=== PATIENT | female | born 1980 | race African-American/Black ===

== ENCOUNTER 2017-01-02 03:12 | Emergency (ER) | payer OTHER ==
[~2017-01-02] VITALS: Ht 172.7 cm; Wt 64.9 kg
[2017-01-02 03:58] LABS: BASOPHIL COUNT 0.1 K/uL (0-0.1); EOSINOPHIL (%) 0 % (0-5); HEMATOCRIT 36.1 % (36.0-46.0); IMMATURE GRANULOCYTE (%) 0.7 % (0.0-0.7); IMMATURE GRANULOCYTE COUNT 0.1 K/uL; INSTRUMENT ABS NEUTROPHIL CT 14.9 K/uL; MCH 26.4 PG (29.0-34.0); MCHC 32.4 G/DL (30.0-36.0); MCV 81.3 FL (83-99); MEAN PLAT.VOLUME 9.8 uM^3 (9.5-12.4); MONOCYTE COUNT 0.8 K/uL (0-0.8); NEUTROPHIL (%) 88.2 % (45-76); NEUTROPHIL COUNT 14.9 K/uL (1.8-6.4); PLATELET COUNT 331 K/uL (156-360); RBC DIS.WIDTH-CV 17.2 % (11.8-14.6); RBC DIS.WIDTH-SD 50.9 % (39-53); RED BLOOD COUNT 4.44 M/uL (3.80-5.20); WHITE BLOOD COUNT 16.8 K/uL (4.1-10.2)
[2017-01-02 04:10] LABS: AMYLASE 74 IU/L (1-118); CHLORIDE 109 mEq/L (99-109); POTASSIUM 3.6 mEq/L (3.7-5.4); SODIUM 136 mEq/L (136-147)
[2017-01-02 04:12] LABS: GLUCOSE 81 mg/dL (70-99)
[2017-01-02 04:13] LABS: ANION GAP 14 MEQ/L (2-14)
[2017-01-02 04:15] LABS: SERUM ETHYL ALCOHOL 73 mg/dL
[2017-01-02 04:17] LABS: UREA NITROGEN (BUN) 13 mg/dL (9-23)
[2017-01-02 04:19] LABS: LIPASE 18 U/L (1.0-51.0)
[2017-01-02 04:26] LABS: QUANTITATIVE HCG < 4.0 MIU/ML
[2017-01-02 04:28] LABS: GFR ESTIMATE (CALCULATED) > 59 mL/min/
[2017-01-02] MEDS ORDERED: FLEXERIL5 MG PO (04:48)
[2017-01-02] MEDS ORDERED: MOTRIN600 MG PO (04:48)
[2017-01-02] MEDS ORDERED: PERCOCET 5/31 TABLET PO (05:26)
[2017-01-02 06:05] LABS: CHLORIDE 111 mEq/L (99-109); POTASSIUM 4.2 mEq/L (3.7-5.4); SODIUM 135 mEq/L (136-147)
[2017-01-02 06:07] LABS: GLUCOSE 80 mg/dL (70-99)
[2017-01-02 06:08] LABS: ANION GAP 10 MEQ/L (2-14)
[2017-01-02 06:10] LABS: GFR ESTIMATE (CALCULATED) > 59 mL/min/
[2017-01-02 06:11] LABS: UREA NITROGEN (BUN) 11 mg/dL (9-23)
[2017-01-02] MEDS ORDERED: ADULT FOLDING1 EACH MC (08:16)
[2017-01-02 08:51] VITALS: BP 105/70
== END 2017-01-02 08:52 | disposition home or self-care (01) ==
LOC: EME 03:12 → TRA 03:12
PROVIDERS: Emergency Medicine
PROC: 2W3SX1Z Immobilization of Right Foot using Splint (ICD-10-PCS; principal; 2017-01-02)
DX: F10.129 Alcohol abuse with intoxication, unspecified (principal); Y90.3 Blood alcohol level of 60-79 mg/100 ml; S80.10XA Contusion of unspecified lower leg, initial encounter; S80.819A Abrasion, unspecified lower leg, initial encounter; S92.351A Displaced fracture of fifth metatarsal bone, right foot, initial encounter for closed fracture; V47.0XXA Car driver injured in collision with fixed or stationary object in nontraffic accident, initial encounter; Y92.488 Other paved roadways as the place of occurrence of the external cause; M25.552 Pain in left hip; J45.909 Unspecified asthma, uncomplicated
CPT/HCPCS: 70450; 71260; 72125; 73110; 73564; 73610; 73630; 74177; 80048; 80048 91; 81003; 82150; 83690; 84702; 85025; 86900; 86901; 99281; 99285; G0480; J2270; J2405; J7030